=== PATIENT | male | born 1995 | race African-American/Black ===

== ENCOUNTER 2017-03-09 09:21 | Emergency (ER) | payer SELFPAY ==
[~2017-03-09] VITALS: Ht 188 cm; Wt 85.0 kg
[2017-03-09 10:34] VITALS: BP 156/103
== END 2017-03-09 10:34 | disposition home or self-care (01) ==
LOC: EME 09:21
DX: A64 Unspecified sexually transmitted disease (principal); Z20.2 Contact with and (suspected) exposure to infections with a predominantly sexual mode of transmission; F17.200 Nicotine dependence, unspecified, uncomplicated
CPT/HCPCS: 99281; 99284; J0696